=== PATIENT | female | born 1960 | race Caucasian/White ===

== ENCOUNTER 2016-12-18 21:30 | Emergency (ER) | payer MEDICARE ==
[~2016-12-18] VITALS: Ht 165.1 cm; Wt 125.0 kg
[~2016-12-18 21:30] MED LIST: ASPI325T PO; ATEN-100 PO; CITA-48 PO; FLAG500T PO; GLUCTAB PO; HYDR-3533 PO; LEVO.025 PO; LEVO50IN PO; NAPR500 PO; TRAZ50TA4 PO; VITA500T10 PO; ZOFR4TAB3 SL
[2016-12-18 21:37] VITALS: BP 188/96; PULSE 81; RESP 16; TEMP 98.6; O2SAT 96
[2016-12-18] MEDS ORDERED: SODIUM CHLOR 0.9% 1000 ML INJ 1,000 ML IV SCH (22:05)
[2016-12-18] MEDS ORDERED: MORPHINE SULFATE 4 MG/ML INJ IV PUSH ONE (22:15)
[2016-12-18] MEDS ORDERED: ONDANSETRON HCL 4 MG/2 ML VIAL IVP ONE (22:15)
--- NOTE | 2016-12-18 22:15 | PD ---
HPI Chief Complaint: Cardiac Complaint Time Seen by Provider: 21:50 Travel History International Travel<30 days: No Contact w/Intl Traveler<30days: No Traveled to known affect area: No History of Present Illness HPI The patient is a 56-year-old female who presents emergency department for bilateral "kidney pain" and numbness of the left upper extremity. The patient states she's had a multitude of symptoms of the last several months. The patient had a nuclear medicine myocardial perfusion scan performed 3 months ago per her report at [facility] which was negative. The patient then had an MRA of the aorta which revealed approximately 60-70% stenosis of the aorta near the inferior mesenteric artery, however, the celiac artery, superior mesenteric artery, and inferior mesenteric artery were unremarkable. The patient was referred to see a vascular surgeon, Dr. Alexander, and has an appointment on January 13 to be evaluated by Dr. Alexander. The patient denies any chest pain, however, states she had mild shortness of breath earlier tonight, was worried she was having a heart attack because of the shortness of breath and numbness to the left thumb. She denies any history of CAD or previous [place]. She does note the negative stress test 3 months ago. She does have a history of hypertension, diabetes, and tobacco use a one pack of cigarettes per day. She also notes weight loss over the last several months of approximately 20 pounds, has been eating more soup recently secondary to nausea after eating. However, she denies any significant abdominal pain after eating. The patient's primary physician is Dr. Valadez. The patient also states she recently had a colonoscopy that was unremarkable. PFSH Past Medical History Hx Anticoagulant Therapy: Yes (ASA) Cardiovascular Problems: Yes Diabetes: Yes Diminished Hearing: No Genitourinary: Yes Hypertension: Yes Thyroid Disease: Yes : 3 Para: 3 Miscarriage: 0 : 0 Past Surgical History Abdominal Surgery: Yes (HERNIA) Cholecystectomy: Yes Genitourinary Surgery: Yes (BLADDER SLING X2) Hysterectomy: Yes Tonsillectomy: Yes Other Surgery: Yes Social History Alcohol Use: Yes (RARE) Tobacco Use: Yes (1PPD) Substance Use: No Allergies-Medications (Allergen,Severity, Reaction): Coded Allergies: Penicillin (Verified Allergy, Severe, Anaphylaxis, 06/18/16) Reported Meds & Prescriptions Reported Meds & Active Scripts Active Reported Nexium (Esomeprazole DR) 40 Mg Capdr 40 Mg PO DAILY Citalopram (Citalopram Hydrobromide) 40 Mg Tab 40 Mg PO DAILY Atenolol 25 Mg Tab 25 Mg PO DAILY Levothyroxine (Levothyroxine Sodium) 200 Mcg Tab 200 Mcg PO DAILY Levothyroxine (Levothyroxine Sodium) 25 Mcg Tab 25 Mcg PO DAILY Trazodone (Trazodone HCl) 50 Mg Tab 50 Mg PO HS Metformin (Metformin HCl) 1,000 Mg Tab 1,000 Mg PO BIDPC With meals Review of Systems Except as stated in HPI: all other systems reviewed are Neg General / Constitutional: Positive: Weight Loss (approximately 20 pounds), No : Fever HENT: No: Lightheadedness Cardiovascular: No: Chest Pain or Discomfort Respiratory: Positive: Shortness of Breath Gastrointestinal: Positive: Nausea, No: Vomiting, Diarrhea, Abdominal Pain Genitourinary: No: Dysuria Musculoskeletal: Positive: Pain (bilateral "kidney pain") Neurologic: No: Dizziness Physical Exam Narrative GENERAL: Awake, alert, nontoxic-appearing 56-year-old female who appears her stated age and is in no acute respiratory distress. SKIN: Focused skin assessment warm/dry. HEAD: Atraumatic. Normocephalic. EYES: No injection or drainage. ENT: No nasal bleeding or discharge. Mucous membranes pink and moist. NECK: Trachea midline. No JVD. CARDIOVASCULAR: Regular rate and rhythm. No murmur appreciated. RESPIRATORY: No accessory muscle use. Clear to auscultation. Breath sounds equal bilaterally. GASTROINTESTINAL: Abdomen soft, obese, no rebound tenderness. Back: No CVA tenderness. MUSCULOSKELETAL: No obvious deformities. No clubbing. No cyanosis. No edema. Positive left radial pulse. Intrinsic hand muscles on the left are intact. NEUROLOGICAL: Awake and alert. No obvious cranial nerve deficits. Motor grossly within normal limits. Normal speech. Sensation is mildly decreased over the volar aspect of the thumb on the left aspect, but is intact to the median and ulnar distribution. PSYCHIATRIC: Appropriate mood and affect; insight and judgment normal. Data Data Last Documented VS Vital Signs Date Time Temp Pulse Resp B/P Pulse Ox O2 Delivery O2 Flow Rate FiO2 12/19/16 01:30 98.4 78 18 122/56 97 Room Air Orders Complete Blood Count With Diff (12/18/16 22:05) Comprehensive Metabolic Panel (12/18/16 22:05) Lipase (12/18/16 22:05) Lactic Acid (12/18/16 22:05) Urinalysis - C+S If Indicated (12/18/16 22:05) Iv Access Insert/Monitor (12/18/16 22:05) Ecg Monitoring (12/18/16 22:05) Oximetry (12/18/16 22:05) Morphine Inj (Morphine Inj) (12/18/16 22:15) Ondansetron Inj (Zofran Inj) (12/18/16 22:15) Sodium Chlor 0.9% 1000 Ml Inj (Ns 1000 M (12/18/16 22:05) Sodium Chloride 0.9% Flush (Ns Flush) (12/18/16 22:15) Electrocardiogram (12/18/16 22:05) Chest, Single Ap (12/18/16 22:05) Troponin I (12/18/16 22:05) Creatine Kinase (Cpk) (12/18/16 22:05) Sodium Chlor 0.9% 1000 Ml Inj (Ns 1000 M (12/18/16 23:15) Ct Abd/Pel W/O Iv Contrast (12/18/16 ) Troponin I (12/19/16 01:10) Lactic Acid (12/19/16 01:10) Morphine Inj (Morphine Inj) (12/19/16 02:00) Labs Laboratory Tests Test 12/18/16 12/19/16 22:10 01:00 White Blood Count 8.8 TH/MM3 Red Blood Count 4.48 MIL/MM3 Hemoglobin 14.0 GM/DL Hematocrit 40.9 % Mean Corpuscular Volume 91.4 FL Mean Corpuscular Hemoglobin 31.3 PG Mean Corpuscular Hemoglobin 34.3 % Concent Red Cell Distribution Width 14.6 % Platelet Count 170 TH/MM3 Mean Platelet Volume 10.5 FL Neutrophils (%) (Auto) 44.8 % Lymphocytes (%) (Auto) 41.6 % Monocytes (%) (Auto) 8.0 % Eosinophils (%) (Auto) 4.5 % Basophils (%) (Auto) 1.1 % Neutrophils # (Auto) 4.0 TH/MM3 Lymphocytes # (Auto) 3.7 TH/MM3 Monocytes # (Auto) 0.7 TH/MM3 Eosinophils # (Auto) 0.4 TH/MM3 Basophils # (Auto) 0.1 TH/MM3 CBC Comment DIFF FINAL Differential Comment Urine Color YELLOW Urine Turbidity HAZY Urine pH 6.0 Urine Specific [place] 1.027 Urine Protein TRACE mg/dL Urine Glucose (UA) 1000 mg/dL Urine Ketones 10 mg/dL Urine Occult Blood NEG Urine Nitrite NEG Urine Bilirubin NEG Urine Urobilinogen 2.0 MG/DL Urine Leukocyte Esterase NEG Urine RBC 2 /hpf Urine WBC 3 /hpf Urine Squamous Epithelial 8 /hpf Cells Urine Calcium Oxalate Crystals MOD /hpf Urine Bacteria OCC /hpf Urine Mucus FEW /lpf Microscopic Urinalysis Comment CULT NOT INDICATED Sodium Level 142 MEQ/L Potassium Level 4.2 MEQ/L Chloride Level 105 MEQ/L Carbon Dioxide Level 25.3 MEQ/L Anion Gap 12 MEQ/L Blood Urea Nitrogen 13 MG/DL Creatinine 1.02 MG/DL Estimat Glomerular Filtration 56 ML/MIN Rate Random Glucose 264 MG/DL Lactic Acid Level 2.9 mmol/L 1.5 mmol/L Calcium Level 9.0 MG/DL Total Bilirubin 0.2 MG/DL Aspartate Amino Transf 47 U/L (AST/SGOT) Alanine Aminotransferase 61 U/L (ALT/SGPT) Alkaline Phosphatase 76 U/L Total Creatine Kinase 96 U/L Troponin I LESS THAN 0.02 LESS THAN 0.02 NG/ML NG/ML Total Protein 6.8 GM/DL Albumin 3.4 GM/DL Lipase 113 U/L [facility] Medical Decision Making Medical Screen Exam Complete: Yes Emergency Medical Condition: Yes Medical Record Reviewed: Yes Interpretation(s) EKG reveals normal sinus rhythm with a rate of 76. Low QRS voltage precordial leads. Last Impressions Chest X-Ray 12/18/162204 Signed Impressions: Service Date/Time: Sunday, December 18, 2016 22:24 - CONCLUSION: Left basilar subsegmental atelectasis. Jorge Zhao MD CT of the abdomen and pelvis reveals no renal or ureteral stones. No hydronephrosis or hydroureter. No acute abnormality observed explain the patient's pain. Bilateral Gen. gland adenomas. 1.8 cm low density lesion involving the right kidney is poorly characterized on this exam without IV contrast. It may be simply related to a cyst. It is stable. Hepatic steatosis. Laboratory Tests Test 12/18/16 12/19/16 22:10 01:00 White Blood Count 8.8 TH/MM3 Red Blood Count 4.48 MIL/MM3 Hemoglobin 14.0 GM/DL Hematocrit 40.9 % Mean Corpuscular Volume 91.4 FL Mean Corpuscular Hemoglobin 31.3 PG Mean Corpuscular Hemoglobin 34.3 % Concent Red Cell Distribution Width 14.6 % Platelet Count 170 TH/MM3 Mean Platelet Volume 10.5 FL Neutrophils (%) (Auto) 44.8 % Lymphocytes (%) (Auto) 41.6 % Monocytes (%) (Auto) 8.0 % Eosinophils (%) (Auto) 4.5 % Basophils (%) (Auto) 1.1 % Neutrophils # (Auto) 4.0 TH/MM3 Lymphocytes # (Auto) 3.7 TH/MM3 Monocytes # (Auto) 0.7 TH/MM3 Eosinophils # (Auto) 0.4 TH/MM3 Basophils # (Auto) 0.1 TH/MM3 CBC Comment DIFF FINAL Differential Comment Urine Color YELLOW Urine Turbidity HAZY Urine pH 6.0 Urine Specific [place] 1.027 Urine Protein TRACE mg/dL Urine Glucose (UA) 1000 mg/dL Urine Ketones 10 mg/dL Urine Occult Blood NEG Urine Nitrite NEG Urine Bilirubin NEG Urine Urobilinogen 2.0 MG/DL Urine Leukocyte Esterase NEG Urine RBC 2 /hpf Urine WBC 3 /hpf Urine Squamous Epithelial 8 /hpf Cells Urine Calcium Oxalate Crystals MOD /hpf Urine Bacteria OCC /hpf Urine Mucus FEW /lpf Microscopic Urinalysis Comment CULT NOT INDICATED Sodium Level 142 MEQ/L Potassium Level 4.2 MEQ/L Chloride Level 105 MEQ/L Carbon Dioxide Level 25.3 MEQ/L Anion Gap 12 MEQ/L Blood Urea Nitrogen 13 MG/DL Creatinine 1.02 MG/DL Estimat Glomerular Filtration 56 ML/MIN Rate Random Glucose 264 MG/DL Lactic Acid Level 2.9 mmol/L 1.5 mmol/L Calcium Level 9.0 MG/DL Total Bilirubin 0.2 MG/DL Aspartate Amino Transf 47 U/L (AST/SGOT) Alanine Aminotransferase 61 U/L (ALT/SGPT) Alkaline Phosphatase 76 U/L Total Creatine Kinase 96 U/L Troponin I LESS THAN 0.02 LESS THAN 0.02 NG/ML NG/ML Total Protein 6.8 GM/DL Albumin 3.4 GM/DL Lipase 113 U/L Differential Diagnosis Differential diagnosis includes mesenteric ischemia, acute coronary syndrome, pancreatitis, gastritis, peptic ulcer disease, nephrolithiasis, pyelonephritis, hydronephrosis, GERD. Narrative Course IV was established, labs are drawn and sent, and the patient was placed on cardiac telemetry monitoring and continuous pulse oximetry monitoring. EKG was ordered and interpreted. Chest x-ray was obtained. I reviewed the patient's MRA, she does have atherosclerosis affect and aorta, however, the celiac artery , superior mesenteric artery, and inferior mesenteric artery appeared intact. I doubt this is truly mesenteric ischemia. However, lactic acid was sent to lab. Patient does have outpatient follow-up with Dr. Alexander on January 13. The patient is concerned she was having a heart attack, EKG was unremarkable, she had a stress test 3 months ago per her recollection which was negative. Therefore, troponin and CPK were sent to lab, however, I doubt ACS. The patient was administered morphine, Zofran, and monitored in the emergency department. The patient's lactic acid was elevated 2.9, glucose was elevated 264, therefore, patient was administered 1 L of IV fluids. Initial troponin was unremarkable. UA is negative except for calcium mildly crystals, patient has bilateral flank pain, has a previous history of kidney stone with a stone that measured 28 mm. Therefore, noncontrast CT the abdomen and pelvis was obtained. Repeat troponin and lactic acid were ordered at the 3 hour level. The patient's pain had significantly improved after morphine/Zofran and her blood pressure came down to 130/74. CT of the abdomen and pelvis was unremarkable. The patient's second troponin was less than 0.02. Lactic acid came down to 1.5. Patient is stable for outpatient follow-up. Diagnosis Primary Impression: Bilateral flank pain Patient Instructions: General Instructions Additional Instructions: Please provide the patient a copy of her CT results and lab results at discharge. Follow-up with Dr. Alexander as scheduled. Follow-up with your primary physician. Return if symptoms worsen or progress. Med/Other Pt SpecificInfo: Prescription(s) given Scripts Hydrocodone-Acetaminophen ([place])5-325 mg Tab1 Tab PO Q6H PRN (PAIN) #15 TAB Ref 0 Prov:Fred Mederos MD 12/19/16 Disposition: 01 DISCHARGE HOME Condition: Stable Fred Mederos MD Dec 18, 2016 22:15
--- NOTE | 2016-12-18 22:32 | RADRPT ---
EXAM DATE/TIME: 12/18/2016 22:24 [facility] COMPARISON: No previous studies available for comparison. INDICATIONS : Shortness of breath. MEDICAL HISTORY : Hypertension. Diabetes mellitus type 2. SURGICAL HISTORY : None. ENCOUNTER: Initial ACUITY: 1 day PAIN SCORE: 0/10 LOCATION: chest FINDINGS: A single view of the chest demonstrates linear density left lung base without evidence of mass, infil trate or effusion. The cardiomediastinal contours are unremarkable. Osseous structures are intact. CONCLUSION: Left basilar subsegmental atelectasis. Jorge Zhao MD on December 18, 2016 at 22:30 Board Certified Radiologist. This report was verified electronically.
[2016-12-18 22:44] LABS: BASOPHIL # 0.1 TH/MM3 (0-0.2); BASOPHIL % 1.1 % (0.0-2.0); EOSINOPHIL # 0.4 TH/MM3 (0-0.4); EOSINOPHIL % 4.5 % (0.0-4.0); HEMATOCRIT 40.9 % (35.0-46.0); HEMO FLAGS DIFF FINAL; LYMPH % 41.6 % (9.0-44.0); LYMPHOCYTE # 3.7 TH/MM3 (1.0-4.8); MEAN CELL VOLUME 91.4 FL (80.0-100.0); MEAN CORPUSCULAR HEMOGLOBIN 31.3 PG (27.0-34.0); MEAN CORPUSCULAR HGB CONC 34.3 % (32.0-36.0); NEUT % 44.8 % (16.0-70.0); PLATELET COUNT 170 TH/MM3 (150-450); RED BLOOD COUNT 4.48 MIL/MM3 (4.00-5.30); RED CELL DISTRIBUTION WIDTH 14.6 % (11.6-17.2); WHITE BLOOD COUNT 8.8 TH/MM3 (4.0-11.0)
[2016-12-18 22:58] LABS: BACTERIA, URINE OCC /hpf; BLOOD, URINE NEG (NEG); CALCIUM OXALATE CRYSTALS,URINE MOD /hpf; COMMENT (UR) CULT NOT INDICATED; CULTURE IF INDICATED CULT NOT INDICATED; GLUCOSE,URINE 1000 mg/dL (NEG); KETONE, URINE 10 mg/dL (NEG); MUCUS URINE FEW /lpf (OCC); NITRITE,URINE NEG (NEG); SQUAMOUS EPITHELIAL CELL URINE 8 /hpf (0-5); URINE COLOR YELLOW (YELLW/STRAW)
[2016-12-18 23:00] LABS: ANION GAP 12 MEQ/L (5-15); AST (GOT) 47 U/L (15-37); BICARBONATE 25.3 MEQ/L (21.0-32.0); BLOOD UREA NITROGEN 13 MG/DL (7-18); CHLORIDE 105 MEQ/L (98-107); GLOMERULAR FILTRATION RATE 56 ML/MIN (>89); POTASSIUM 4.2 MEQ/L (3.5-5.1); SODIUM (NA) 142 MEQ/L (136-145)
[2016-12-18 23:04] LABS: ALKALINE PHOSPHATASE 76 U/L (45-117); ALT (GPT) 61 U/L (10-53); TOTAL BILIRUBIN ADULT 0.2 MG/DL (0.2-1.0)
[2016-12-18 23:08] LABS: CREATINE KINASE 96 U/L (26-192)
[2016-12-18] MEDS: SODIUM CHLORIDE 0.9% FLUSH 10 ML FLUSH IV FLUSH PRN (23:10)
[2016-12-18 23:11] VITALS: RESP 16; O2SAT 98
[2016-12-18] MEDS ORDERED: TRAZ50TA12 PO (23:15)
[2016-12-18] MEDS ORDERED: SODIUM CHLOR 0.9% 1000 ML INJ 1,000 ML IV ONE (23:15)
[2016-12-18] MEDS ORDERED: NEXI40CA PO (23:15)
[2016-12-18] MEDS ORDERED: LEVO200T4 PO (23:15)
[2016-12-18] MEDS ORDERED: CITA40TA4 PO (23:15)
[2016-12-18] MEDS ORDERED: METF1000 PO (23:15)
[2016-12-18] MEDS ORDERED: LEVO25TA4 PO (23:15)
[2016-12-18] MEDS ORDERED: ATEN25TA PO (23:15)
[2016-12-18 23:18] VITALS: BP 130/86; PULSE 79; RESP 16; O2SAT 96
--- NOTE | 2016-12-18 23:55 | RADRPT ---
EXAM DATE/TIME: 12/18/2016 23:30 [facility] COMPARISON: CT ABDOMEN & PELVIS W/O CONTRAST, June 18, 2016, 21:20. INDICATIONS : Bilateral flank pain. ORAL CONTRAST: No oral contrast ingested. RADIATION DOSE: 14.29 CTDIvol (mGy) MEDICAL HISTORY : Hypertension. SURGICAL HISTORY : Cholecystectomy. Hysterectomy.Bladder sling. ENCOUNTER: Initial ACUITY: 1 day PAIN SCALE: 8/10 LOCATION: Bilateral flank TECHNIQUE: Volumetric scanning of the abdomen and pelvis was performed. Using automated exposure control and ad justment of the mA and/or kV according to patient size, radiation dose was kept as low as reasonably achievable to obtain optimal diagnostic quality images. FINDINGS: LOWER LUNGS: The visualized lower lungs are clear. LIVER: Homogeneous low density without lesion. There is no dilation of the biliary tree. Gallbladder surgic ally absent. SPLEEN: Normal size without lesion. PANCREAS: Within normal limits. KIDNEYS: Normal in size and shape. There is no mass, stone, or hydronephrosis. There is an exophytic low-dens ity lesion from the lower pole of the right kidney along its medial border. It measures 1.8 cm in siz e. Hounsfield units are 22. It is unchanged. ADRENAL GLANDS: Bilateral adrenal gland adenomas are observed. On the right this measures 1.8 cm and on the left 1.4 cm. Hounsfield units are -2 on the right and -8 on the left. These are stable. VASCULAR: There is no aortic aneurysm. Diffuse calcified plaque. BOWEL/MESENTERY: The stomach, small bowel, and colon demonstrate no acute abnormality. There is no free intraperitone al air or fluid. ABDOMINAL WALL: Within normal limits. RETROPERITONEUM: There is no lymphadenopathy. BLADDER: No wall thickening or mass. REPRODUCTIVE: Within normal limits. INGUINAL: There is no lymphadenopathy or hernia. MUSCULOSKELETAL: Within normal limits for patient age. CONCLUSION: 1. No renal or ureteral stones. No hydronephrosis or hydroureter. 2. No acute abnormality observed to explain the patient's pain. 3. Bilateral adrenal gland adenomas. 4. 1.8 cm low-density lesion involving the right kidney is poorly characterized on this exam without IV contrast. It may simply related to a cyst. It is stable. 5. Hepatic steatosis. Henry Bermeo Jr., MD on December 18, 2016 at 23:47 Board Certified Radiologist. This report was verified electronically.
[2016-12-19 01:30] VITALS: BP 122/56; PULSE 78; RESP 18; TEMP 98.4; O2SAT 97
[2016-12-19] MEDS ORDERED: NORC5TAB PO (01:59)
[2016-12-19] MEDS ORDERED: MORPHINE SULFATE 4 MG/ML INJ IV PUSH ONE (02:00)
[2016-12-19] MEDS: SODIUM CHLORIDE 0.9% FLUSH 10 ML FLUSH IV FLUSH PRN (02:07)
[2016-12-19 02:08] VITALS: BP 156/73
[2016-12-19 02:22] VITALS: RESP 16
--- NOTE | 2016-12-19 13:20 | EKG ---
Date Performed: 12/18/2016 Time Performed: 22:05:33 PTAGE: 56 years EKG: Sinus rhythm LOW QRS VOLTAGE IN PRECORDIAL LEADS BORDERLINE ECG NO PREVIOUS TRACING DOCTOR: Missael Murillo Interpretating Date/Time 12/19/2016 13:17:10
== END 2016-12-19 02:22 | disposition home or self-care (01) ==
LOC: NEPC 21:30
DX: R10.9 Unspecified abdominal pain (principal); R06.02 Shortness of breath; R20.0 Anesthesia of skin; R63.4 Abnormal weight loss; I10 Essential (primary) hypertension; F17.210 Nicotine dependence, cigarettes, uncomplicated
CPT/HCPCS: 71010; 74176; 80053; 81001; 82550; 83605; 83690; 84484; 85025; 93005; 96361; 96374; 96375; 96376; 99284; J2270; J2405; J7030

== ENCOUNTER 2017-01-01 10:35 | Emergency (ER) | payer MEDICARE ==
[~2017-01-01] VITALS: Ht 162.6 cm; Wt 123.5 kg
[~2017-01-01 10:35] MED LIST changes: -ASPI325T PO; -ATEN-100 PO; +ATEN25TA PO; -CITA-48 PO; +CITA40TA4 PO; -FLAG500T PO; -GLUCTAB PO; -HYDR-3533 PO; -LEVO.025 PO; +LEVO200T4 PO; +LEVO25TA4 PO; -LEVO50IN PO; +METF1000 PO; -NAPR500 PO; +NEXI40CA PO; +NORC5TAB PO; +TRAZ50TA12 PO; -TRAZ50TA4 PO; -VITA500T10 PO; -ZOFR4TAB3 SL
[2017-01-01 10:38] VITALS: BP 218/95; PULSE 97; RESP 20; TEMP 98.7; O2SAT 98
[2017-01-01] MEDS ORDERED: SODIUM CHLOR 0.9% 1000 ML INJ 1,000 ML IV SCH (11:18)
--- NOTE | 2017-01-01 11:27 | PD ---
HPI Chief Complaint: Pain: Acute or Chronic Time Seen by Provider: 11:21 Travel History International Travel<30 days: No Contact w/Intl Traveler<30days: No Traveled to known affect area: No History of Present Illness HPI 56 year old female presents to the emergency department for evaluation of right flank pain and right sided abdominal pain that has been ongoing for several months. Patient was seen on December 18 at this hospital for same. Recommended that no, she had nuclear medicine myocardial perfusion scan performed 3 months ago at [facility] which was negative. She underwent MRA of the aorta which showed severe irregular atherosclerotic change of the distal aorta with 60-70% narrowing at the level of the inferior mesenteric artery. Patient was referred to vascular surgeon, Dr. Alexander by her primary care physician, Dr. Valadez. The patient states that the pain has been worsening. She went to Dr. briseno's office yesterday, but did not see Dr. Coy. She states that she had a test done then. She states she called his office today was referred to the emergency department by his nurse. The patient denies any chest pain or shortness of breath. She denies any history of previous ID or CAD. The patient states the pain has become more severe causing her to have difficulty walking. She does have a past medical history of hypertension, diabetes, hysterectomy, cholecystectomy, neck surgery with bone graft with subsequent infection, tobacco smoker. Patient denies any nausea, vomiting, diarrhea. She does report constipation for 4 days. PFSH Past Medical History Hx Anticoagulant Therapy: Yes (ASA) Arthritis: Yes Cardiovascular Problems: Yes Coronary Artery Disease: Yes Diabetes: Yes Patient Takes Glucophage: Yes Diminished Hearing: No GERD: Yes Genitourinary: Yes Hypertension: Yes Thyroid Disease: Yes Tetanus Vaccination: Unknown Influenza Vaccination: Yes : 3 Para: 3 Miscarriage: 0 : 0 Past Surgical History Abdominal Surgery: Yes (HERNIA) Cholecystectomy: Yes Genitourinary Surgery: Yes (BLADDER SLING X2) Hysterectomy: Yes Tonsillectomy: Yes Other Surgery: Yes (ABD HERNIA) Social History Alcohol Use: Yes (RARE) Tobacco Use: Yes (1PPD) Substance Use: No Allergies-Medications (Allergen,Severity, Reaction): Coded Allergies: Penicillin (Verified Allergy, Severe, Anaphylaxis, 06/18/16) Reported Meds & Prescriptions Reported Meds & Active Scripts Active [place] (Hydrocodone-Acetaminophen) 5-325 mg Tab 1 Tab PO Q6H PRN Reported Nexium (Esomeprazole DR) 40 Mg Capdr 40 Mg PO DAILY Citalopram (Citalopram Hydrobromide) 40 Mg Tab 40 Mg PO DAILY Atenolol 25 Mg Tab 25 Mg PO DAILY Levothyroxine (Levothyroxine Sodium) 200 Mcg Tab 200 Mcg PO DAILY Levothyroxine (Levothyroxine Sodium) 25 Mcg Tab 25 Mcg PO DAILY Trazodone (Trazodone HCl) 50 Mg Tab 50 Mg PO HS Metformin (Metformin HCl) 1,000 Mg Tab 1,000 Mg PO BIDPC With meals Review of Systems Except as stated in HPI: all other systems reviewed are Neg Physical Exam Narrative GENERAL: Well-nourished, well-developed female patient, afebrile. SKIN: Focused skin assessment warm/dry. HEAD: Normocephalic. Atraumatic. EYES: No scleral icterus. No injection or drainage. NECK: Supple, trachea midline. No JVD or lymphadenopathy. CARDIOVASCULAR: Regular rate and rhythm without murmurs, gallops, or rubs. Bilateral radial pulses 2+. Bilateral pedal pulses 1+. RESPIRATORY: Breath sounds equal bilaterally. No accessory muscle use. Lungs sounds are clear to auscultation. GASTROINTESTINAL: Abdomen soft and nondistended. Patient has tenderness over right abdomen. MUSCULOSKELETAL: No cyanosis, or edema. BACK: Nontender without obvious deformity. Right CVA tenderness. Data Data Last Documented VS Vital Signs Date Time Temp Pulse Resp B/P Pulse Ox O2 Delivery O2 Flow Rate FiO2 01/01/17 12:15 18 01/01/17 11:34 97 Room Air 01/01/17 10:38 98.7 97 218/95 Orders Complete Blood Count With Diff (01/01/17 11:18) Comprehensive Metabolic Panel (01/01/17 11:18) Lipase (01/01/17 11:18) Prothrombin Time / Inr (Pt) (01/01/17 11:18) Act Partial Throm Time (Ptt) (01/01/17 11:18) Urinalysis - C+S If Indicated (01/01/17 11:18) Iv Access Insert/Monitor (01/01/17 11:18) Ecg Monitoring (01/01/17 11:18) Oximetry (01/01/17 11:18) Ondansetron Inj (Zofran Inj) (01/01/17 11:30) Sodium Chlor 0.9% 1000 Ml Inj (Ns 1000 M (01/01/17 11:18) Sodium Chloride 0.9% Flush (Ns Flush) (01/01/17 11:30) Electrocardiogram (01/01/17 11:18) Creatine Kinase (Cpk) (01/01/17 11:18) Troponin I (01/01/17 11:18) Lactic Acid Sepsis Protocol (01/01/17 11:21) Morphine Inj (Morphine Inj) (01/01/17 11:30) Amylase (01/01/17 11:25) Sodium Chlor 0.9% 1000 Ml Inj (Ns 1000 M (01/01/17 12:45) Labs Laboratory Tests Test 01/01/17 11:25 White Blood Count 9.1 TH/MM3 Red Blood Count 4.59 MIL/MM3 Hemoglobin 14.4 GM/DL Hematocrit 42.1 % Mean Corpuscular Volume 91.8 FL Mean Corpuscular Hemoglobin 31.4 PG Mean Corpuscular Hemoglobin 34.3 % Concent Red Cell Distribution Width 15.0 % Platelet Count 164 TH/MM3 Mean Platelet Volume 10.4 FL Neutrophils (%) (Auto) 51.0 % Lymphocytes (%) (Auto) 36.7 % Monocytes (%) (Auto) 6.5 % Eosinophils (%) (Auto) 4.8 % Basophils (%) (Auto) 1.0 % Neutrophils # (Auto) 4.7 TH/MM3 Lymphocytes # (Auto) 3.4 TH/MM3 Monocytes # (Auto) 0.6 TH/MM3 Eosinophils # (Auto) 0.4 TH/MM3 Basophils # (Auto) 0.1 TH/MM3 CBC Comment DIFF FINAL Differential Comment Prothrombin Time 11.2 SEC Prothromb Time International 1.0 RATIO Ratio Activated Partial 22.1 SEC Thromboplast Time Urine Color YELLOW Urine Turbidity HAZY Urine pH 6.5 Urine Specific [place] 1.022 Urine Protein TRACE mg/dL Urine Glucose (UA) 150 mg/dL Urine Ketones NEG mg/dL Urine Occult Blood NEG Urine Nitrite NEG Urine Bilirubin NEG Urine Urobilinogen 2.0 MG/DL Urine Leukocyte Esterase NEG Urine RBC 1 /hpf Urine WBC 2 /hpf Urine Squamous Epithelial 6 /hpf Cells Urine Calcium Oxalate Crystals FEW /hpf Urine Hyaline Casts 1 /lpf Urine Mucus FEW /lpf Microscopic Urinalysis Comment CULT NOT INDICATED Sodium Level 137 MEQ/L Potassium Level 4.0 MEQ/L Chloride Level 100 MEQ/L Carbon Dioxide Level 24.7 MEQ/L Anion Gap 12 MEQ/L Blood Urea Nitrogen 13 MG/DL Creatinine 0.97 MG/DL Estimat Glomerular Filtration 59 ML/MIN Rate Random Glucose 329 MG/DL Lactic Acid Level 2.9 mmol/L Calcium Level 9.5 MG/DL Total Bilirubin 0.2 MG/DL Aspartate Amino Transf 47 U/L (AST/SGOT) Alanine Aminotransferase 50 U/L (ALT/SGPT) Alkaline Phosphatase 75 U/L Total Creatine Kinase 86 U/L Troponin I LESS THAN 0.02 NG/ML Total Protein 7.0 GM/DL Albumin 3.5 GM/DL Amylase Level 32 U/L Lipase 180 U/L MDM Medical Decision Making Medical Screen Exam Complete: Yes Emergency Medical Condition: Yes Medical Record Reviewed: Yes Differential Diagnosis atherosclerotic change of the aorta versus mesenteric ischemia versus chronic pain versus nephrolithiasis Narrative Course 56-year-old female presents to the emergency department for worsening flank and abdominal pain. She was referred to vascular surgeon, Dr. Alexander for atherosclerotic change of the distal aorta with 60-70% narrowing at the level of the inferior mesenteric artery. She apparently called his office today and was referred to the emergency department by his nurse. EKG, CBC, CMP, lipase, CK, troponin, lactic acid, UA are ordered and pending. Dr. Alexander is paged. EKG shows sinus rhythm, heart rate 79, no acute ST change. CBC is unremarkable. CMP shows elevated glucose 329, AST 47. Lipase is 180. Amylase is 32. CK is 86. Troponin is less than 0.02. Lactic acid is elevated at 2.9. UA shows no evidence of acute infection. Vascular surgeon donkey ride operator is paged. I talked to a nurse who is relaying my message to Dr. Michel while he was in the OR. He states the patient is stable to follow up with Dr. Alexander. The patient verbalizes agreement to this. Patient will be discharged a short-term prescription for Lortab for pain. She is instructed to take a stool softener with this. She agrees with this. She is to follow Dr. Alexander as planned. My attending physician, Dr. Plunkett, agrees with plan and disposition. The patient was discharged in stable condition with instructions, including return instructions and follow up instructions. Diagnosis Primary Impression: Abdominal pain Qualified Code: R10.9 - Abdominal pain, unspecified location Referrals: Tad Alexander MD Patient Instructions: Abdominal Pain (ED), General Instructions, Narcotic given in the ED Additional Instructions: Follow-up with Dr. Alexander. Take Lortab as directed as needed for pain. Caution this can make you drowsy after taking. Do not drive after taking. Take a stool softener with this to prevent constipation. Return to the emergency department for any acute worsening of symptoms. Med/Other Pt SpecificInfo: Prescription(s) given Scripts Hydrocodone-Acetaminophen ([place])5-325 mg Tab1 Tab PO Q6H PRN (PAIN) #15 TAB Ref 0 Prov:Ramirez Plunkett MD 01/01/17 Disposition: 01 DISCHARGE HOME Condition: Stable JamesLulú January 01, 2017 11:27
[2017-01-01] MEDS ORDERED: SODIUM CHLORIDE 0.9% FLUSH 10 ML FLUSH IV FLUSH PRN (11:30)
[2017-01-01] MEDS ORDERED: ONDANSETRON HCL 4 MG/2 ML VIAL IVP ONE (11:30)
[2017-01-01] MEDS ORDERED: MORPHINE SULFATE 8 MG/ML INJ IV PUSH ONE (11:30)
[2017-01-01 11:34] VITALS: O2SAT 97
[2017-01-01 11:58] LABS: AUTOMATED NEUTROPHIL # 4.7 TH/MM3 (1.8-7.7); BASOPHIL # 0.1 TH/MM3 (0-0.2); EOSINOPHIL # 0.4 TH/MM3 (0-0.4); EOSINOPHIL % 4.8 % (0.0-4.0); HEMATOCRIT 42.1 % (35.0-46.0); HEMO FLAGS DIFF FINAL; LYMPH % 36.7 % (9.0-44.0); LYMPHOCYTE # 3.4 TH/MM3 (1.0-4.8); MEAN CELL VOLUME 91.8 FL (80.0-100.0); MEAN CORPUSCULAR HEMOGLOBIN 31.4 PG (27.0-34.0); MEAN CORPUSCULAR HGB CONC 34.3 % (32.0-36.0); MONO % 6.5 % (0.0-8.0); PLATELET COUNT 164 TH/MM3 (150-450); RED BLOOD COUNT 4.59 MIL/MM3 (4.00-5.30); WHITE BLOOD COUNT 9.1 TH/MM3 (4.0-11.0)
[2017-01-01 12:00] VITALS: BP 189/85; PULSE 85; RESP 20; O2SAT 99
[2017-01-01 12:02] LABS: BLOOD, URINE NEG (NEG); CALCIUM OXALATE CRYSTALS,URINE FEW /hpf; COMMENT (UR) CULT NOT INDICATED; CULTURE IF INDICATED CULT NOT INDICATED; GLUCOSE,URINE 150 mg/dL (NEG); HYALINE CAST, URINE 1 /lpf (RARE); KETONE, URINE NEG (NEG); MUCUS URINE FEW /lpf (OCC); NITRITE,URINE NEG (NEG); PH, URINE 6.5 (5.0-8.5); SQUAMOUS EPITHELIAL CELL URINE 6 /hpf (0-5); URINE COLOR YELLOW (YELLW/STRAW)
[2017-01-01 12:07] LABS: APTT (PATIENT) 22.1 SEC (24.3-30.1); PROTHROMBIN TIME - PATIENT 11.2 SEC (9.8-11.6)
[2017-01-01 12:24] LABS: ALKALINE PHOSPHATASE 75 U/L (45-117); ALT (GPT) 50 U/L (10-53); AMYLASE 32 U/L (25-115); ANION GAP 12 MEQ/L (5-15); AST (GOT) 47 U/L (15-37); BICARBONATE 24.7 MEQ/L (21.0-32.0); BLOOD UREA NITROGEN 13 MG/DL (7-18); CHLORIDE 100 MEQ/L (98-107); GLOMERULAR FILTRATION RATE 59 ML/MIN (>89); SODIUM (NA) 137 MEQ/L (136-145); TOTAL BILIRUBIN ADULT 0.2 MG/DL (0.2-1.0)
[2017-01-01 12:36] LABS: CREATINE KINASE 86 U/L (26-192)
[2017-01-01] MEDS ORDERED: SODIUM CHLOR 0.9% 1000 ML INJ 1,000 ML IV ONE (12:45)
[2017-01-01] MEDS ORDERED: NORC5TAB PO (13:45)
[2017-01-01 13:48] LABS: LACTIC ACID GHOST NOT REPORTABLE
[2017-01-01 14:00] VITALS: BP 165/87; PULSE 89; RESP 20; O2SAT 99
--- NOTE | 2017-01-02 10:31 | EKG ---
Date Performed: 01/01/2017 Time Performed: 12:30:51 PTAGE: 56 years EKG: Sinus rhythm NORMAL ECG PREVIOUS TRACING : 12/18/2016 22.05 DOCTOR: Jean Claude Peterson Interpretating Date/Time 01/02/2017 10:29:46
== END 2017-01-01 14:43 | disposition home or self-care (01) ==
LOC: NEPC 10:35
DX: R10.9 Unspecified abdominal pain (principal); I10 Essential (primary) hypertension; I25.10 Atherosclerotic heart disease of native coronary artery without angina pectoris; K21.9 Gastro-esophageal reflux disease without esophagitis; E11.9 Type 2 diabetes mellitus without complications; F17.200 Nicotine dependence, unspecified, uncomplicated; Z79.84 Long term (current) use of oral hypoglycemic drugs; Z79.899 Other long term (current) drug therapy
CPT/HCPCS: 80053; 81001; 82150; 82550; 83605; 83690; 84484; 85025; 85610; 85730; 93005; 96361; 96374; 96375; 99284; J2270; J2405; J7030